=== PATIENT | female | born 2000 | race Caucasian/White ===

== ENCOUNTER 2024-07-13 08:31 | Emergency (ER) | payer OTHER, SELFPAY ==
[2024-07-13] VITALS (7 sets, daily range): BP systolic 112–120; BP diastolic 72–93; PULSE 60–75; RESP 16–18; TEMP 36.7; O2SAT 100
--- NOTE | ~2024-07-13 | XR_ITS ---
EXAMINATION: XR chest 2V DATE: 07/13/2024 09:09 INDICATION: Chest pain. TECHNIQUE: Frontal and lateral views of the chest were obtained. COMPARISON: None. FINDINGS: There is no pneumonia, pleural effusion, or pneumothorax. The heart is normal. IMPRESSION: 1. No acute cardiopulmonary disease. Reviewed, dictated and finalized at location A.
--- NOTE | ~2024-07-13 | CT_ITS ---
EXAMINATION: CTA chest PE abdomen pel DATE: 07/13/2024 10:08 INDICATION: Chest and upper abdominal pain. TECHNIQUE: Computed tomography angiography (CTA) of the chest was performed with 100 mL Omnipaque-350 intravenous contrast timed to evaluate the pulmonary arteries. Coronal maximum intensity projection 3D-reconstructions were created by the technologist. Computed tomography (CT) of the abdomen and pelv is was performed with intravenous contrast. Automated exposure control and iterative reconstruction t echnique were employed. The dose-length product was 634.20 mGy-cm. COMPARISON: None. FINDINGS: CTA chest: The lungs demonstrate minimal atelectasis. No pleural effusion. The heart size is normal. No pericardial effusion. There is no pulmonary embolus. There is mild thoracic spondylosis. CT abdomen and pelvis: The liver, gallbladder, spleen, pancreas, adrenal glands, and kidneys are norm al. There is a moderate volume of ascites. There are no dilated loops of bowel. The appendix is crow l. The ovaries are enlarged with numerous follicles on either side. There are no pathologically enlar ged lymph nodes. There is a 2.2 cm cyst in the vulva on the left, likely a Bartholin cyst. The bones are unremarkable. IMPRESSION: 1. No pulmonary embolus. 2. Enlarged ovaries with numerous follicles, likely ovarian hyperstimulation syndrome. 3. Moderate volume of ascites. 4. 2.2 cm cyst in the vulva on the left, likely a Bartholin cyst. Reviewed, dictated and finalized at location A. IMPRESSION: 1. No pulmonary embolus. 2. Enlarged ovaries with numerous follicles, likely ovarian hyperstimulation sy ndrome. 3. Moderate volume of ascites. 4. 2.2 cm cyst in the vulva on the left, likely a Bartholin cyst.
--- NOTE | 2024-07-13 08:33 | ECG_ITS ---
Test Date: 2024-07-13 08:41:52 Measurements Intervals [place] Rate: 66 P: 73 OK: 154 QRS: 12 QRSD: 83 T: 24 QT: 373 QTc: 393 Interpretive Statements SINUS RHYTHM WITH SINUS ARRHYTHMIA No previous ECG available for comparison Electronically Signed On 07-13-2024 15:11:43 CDT by Shaquille Watters M.D.
[2024-07-13 09:01] LABS: Basophils Percent Auto 0.3 % (0.2-1.2); Eosinophils Absolute Auto 0.1 K/mm3 (0-0.3); Eosinophils Percent Auto 0.6 % (0-4.4); Immature Granulocyte Absolute 0.06 K/mm3 (0.00-0.031); Immature Granulocyte Percent A 0.5 % (0-0.5); Lymphocytes Percent Auto 15.4 % (18.3-44.2); Mean Corpuscular HGB Conc 34.2 g/dl (32-36); Mean Corpuscular Volume 87.8 fl (80-100); Mean Platelet Volume 9.9 fl (7.4-10.4); Monocytes Percent Auto 7.8 % (2.6-8.5); Neutrophils Absolute Auto 9.3 K/mm3 (1.3-6.7); Neutrophils Percent Auto 75.4 % (45.5-73.1); Platelet Count Result 201 k/mm3 (150-375); Red Blood Count 4.33 M/mm3 (4.2-5.4); White Blood Count 12.4 K/mm3 (4.5-10.0)
--- NOTE | 2024-07-13 09:09 | ED.GENADULT ---
HPI - General Adult General Chief complaint: Chest Pain Stated complaint: cp, sob post egg retrieval yesterday Time Seen by Provider: 07/13/24 08:43 History of Present Illness HPI narrative: Patient is a 23-year-old female who presents ER with lower abdominal pain as well as chest pain and shortness of breath. Patient underwent a egg retrieval at [facility]/fertility clinic yesterday. She reports that the retrieval process was uneventful. She has been on Lovenox for 2 days due to hormone therapy she has been receiving an effort to hopefully prevent any blood clots. She has not been diagnosed with a DVT. Patient reports she is having pain in her right lower quadrant without radiation. The pain is worse with physical movement. Patient also at 3:00 a.m. developed left-sided chest and back pain as well as some shortness of breath. She reports occasionally she will have some tingling of left arm. No fevers or chills or sweats. No vaginal bleeding. Related Data Allergies Allergy/AdvReac Type Severity Reaction Status Date / Time No Known Allergies Allergy Verified 07/13/24 09:16 Review of Systems Review of Systems: All systems reviewed & are unremarkable except as noted in HPI and below Constitutional: Constitutional: Reports no additional constitutional complaints ENT: Reports system reviewed and no additional complaints, except as documented Cardiovascular: Cardiovascular: Reports chest pain, Denies rapid heart rate and Reports radiating jaw, neck or arm pain Respiratory: Respiratory: Denies chest congestion, Denies cough, Reports dyspnea and Denies wheezing Gastrointestinal: Gastrointestinal: Reports abdominal pain, Denies diarrhea, Denies nausea and Denies vomiting Genitourinary: Genitourinary: Reports no additional female genitourinary complaints Musculoskeletal: Musculoskeletal: Reports no additional musculoskeletal complaints PMFSH Past Medical History Medical History (Updated 07/13/24 @ 12:45 by Reinaldo Mendoza MD) Healthy female adult Surgical History Surgical History (Updated 07/13/24 @ 09:18 by Reinaldo Mendoza MD) No history of previous surgery Exam Narrative: GENERAL: Well-appearing, well-nourished, and in no acute distress. HEAD: Normocephalic, atraumatic. EYES: PERRL and EOMI. ENT: Mucous membranes moist. NECK: Supple. Mild discomfort left trapezius musculature CHEST: Clear to auscultation. No respiratory distress. HEART: Regular rate and rhythm. Normal peripheral pulses. ABDOMEN: Soft, moderate tenderness with guarding in the right lower quadrant of the abdomen, nondistended. Yellow bruising and 1 quarter-sized area of purple bruising from Lovenox injections. EXTREMITIES: Normal range of motion. No edema. SKIN: Warm, dry, no rash. NEURO: Alert and oriented x3. PSYCH: Normal mood and affect. Course Vital Signs Vital signs: Vital Signs Temperature 98.1 F 07/13/24 08:35 Pulse Rate 75 07/13/24 08:35 Respiratory Rate 16 07/13/24 08:35 Blood Pressure 120/77 07/13/24 08:35 Pulse Oximetry 100 07/13/24 08:35 Oxygen Delivery Room Air 07/13/24 08:35 Temperature 98.1 F 07/13/24 08:35 Pulse Rate 63 07/13/24 12:03 Respiratory Rate 18 07/13/24 09:34 Blood Pressure 118/74 07/13/24 12:03 Pulse Oximetry 100 07/13/24 12:03 Oxygen Delivery Room Air 07/13/24 09:18 Medical Decision Making MDM Narrative Medical decision making narrative: -Course: Patient resting comfortably. Pain improved. No known distress. Appropriate for discharge. -Co-morbidities complicating care: hormone use. -Social determinants of health: None -External Chart Review: None -Hx from independent Sources: Patient -Independent interpretation of studies: Troponin negative x2. CBC with mild elevation in WBC. Normal hemoglobin. CTA without PE. No intra-abdominal hemorrhage. -Interventions: Toradol, Valium -Shared decision making / Disposition: Y
[2024-07-13 09:11] LABS: Prothrombin Time 13.2 Seconds (11.1-14.7)
[2024-07-13 09:12] LABS: Partial Thromboplastin Time 25.5 Seconds (22.3-36.8)
[2024-07-13 09:13] LABS: Alanine Aminotransferase 14 U/L (6-35); Alkaline Phosphatase 54 U/L (38-126); Anion Gap 11 mmol/L (4-12); Aspartate Amino Transferase 21 U/L (14-36); Bilirubin,Total 0.2 mg/dL (0.2-1.3); Blood Urea Nitrogen 6 mg/dL (7-17); Calcium 8.6 mg/dL (8.4-10.2); Carbon Dioxide 22 mmol/L (22-30); Chloride 103 mmol/L (98-107); Estimated CRCL calculation 124 ml/min; Estimated Glomerular Filt Rate > 60; Glucose 100 mg/dL (65-110); Lipase 61 U/L (23-300); Potassium 3.9 mmol/L (3.4-5.0); Sodium 136 mmol/L (137-145)
[2024-07-13 09:24] LABS: Troponin I < 0.012 ng/mL (0.000-0.034)
[2024-07-13] MEDS: diazePAM INJ (*CRX) 10 MG/2 ML SYRINGE 5 MG IV PUSH (10:58)
[2024-07-13] MEDS: KETOROLAC 30 MG/ML VIAL (*BKC) 15 MG IV PUSH (10:58)
--- NOTE | 2024-07-13 11:55 | ECG_ITS ---
Test Date: 2024-07-13 11:56:44 Measurements Intervals [place] Rate: 66 P: 64 NE: 163 QRS: 11 QRSD: 86 T: 29 QT: 393 QTc: 414 Interpretive Statements SINUS RHYTHM WITH MARKED SINUS ARRHYTHMIA Compared to ECG 07/13/2024 08:41:52 No significant changes Electronically Signed On 07-13-2024 15:17:10 CDT by Shaquille Watters M.D.
[2024-07-13 12:29] LABS: Troponin I < 0.012 ng/mL (0.000-0.034)
== END 2024-07-13 12:49 | disposition home or self-care (01) ==
PROVIDERS: Emergency Provider Emergency Medicine
DX: R07.89 Other chest pain (principal); N75.0 Cyst of Bartholin's gland; Z79.01 Long term (current) use of anticoagulants; Z79.890 Hormone replacement therapy; N83.8 Other noninflammatory disorders of ovary, fallopian tube and broad ligament; R18.8 Other ascites
CPT/HCPCS: 36415; 71046; 71275; 74177; 80053; 83690; 84484; 85025; 85610; 85730; 93005; 96374; 96375; 99284; J1885; J3360; Q9967

== ENCOUNTER 2025-09-21 19:10 | Emergency (ER) | payer OTHER, SELFPAY ==
[2025-09-21 19:16] VITALS: BP 125/63; PULSE 70; RESP 18; TEMP 36.6; O2SAT 100
--- NOTE | 2025-09-21 19:17 | ED_ITS ---
HPI - General Adult General Chief complaint: Skin/Abscess/Foreign Body Stated complaint: Allergic Reaction Time Seen by Provider: 09/21/25 19:17 Source: patient, RN notes reviewed and old records reviewed Mode of arrival: ambulatory Limitations: no limitations History of Present Illness HPI narrative: 25-year-old female presents to the [facility] with red bumps to the right hip area, right arm, right leg. Denies any the thing new except for puppies that are being raised in her garage. Reports that she is taking Benadryl which has not helped with the itching. Reports itching worse at night. Symptoms started 2 days ago Related Data Home Medications ?Medication ?Instructions ?Recorded ?Confirmed ?Last Taken ?Type norethindrone 1 mg-ethinyl tablet 09/21/25 Unknown Hi story estradiol 20 mcg (21)-iron 75 mg (7) tablet (Aurovela Fe 1-20 (28)) Allergies Allergy/AdvReac Type Severity Reaction Status Date / Time No Known Allergies Allergy Verified 09/21/25 19:24 Review of Systems Review of Systems: All systems reviewed & are unremarkable except as noted in HPI and below Constitutional: Constitutional: Reports no additional constitutional complaints Respiratory: Respiratory: Denies cough and Denies dyspnea Musculoskeletal: Musculoskeletal: Reports no additional musculoskeletal complaints Integumentary/Breasts: Skin/Breast: Reports as per HPI [facility] Past Medical History Medical History Healthy female adult Surgical History Surgical History No history of previous surgery Comments At the time of my signature, I reviewed and agree with the nursing past medical, surgical, social, and family history. There is no relevant family history pertinent to the patient complaint. Exam Const: General: cooperative, healthy appearing, comfortable, no acute distress, well developed, alert and well nourished Nutritional Appearance: well nourished Orientation/consciousness: patient oriented x3 Limitations: no limitations HENMT: Head: normal to inspection Mouth: Yes Normal oral and palatal mucosa present, Yes lip normal, Yes tongue normal and Yes moist mucous membranes Eyes: General: appearance normal, both eyes and all related structures Alignment and Position: alignment normal Neck: Neck: normal visual inspection, full ROM, no lymphadenopathy and no meningeal signs Chest: Chest palpation & inspection: normal inspection of the chest Resp: Effort & Inspection: normal respiratory effort and able to speak in complete sentences Cardio: Rate: regular rate Skin: General skin exam: normal color and no rashes or lesions noted Other: Red raised bumps, patient describes itchy without fluctuance or cellulitic changes to the right axilla, right hip area and right lower leg. Neuro: General: patient oriented x3, gait normal, moves all extremities and no meningeal signs Cognition (Neuro): normal cognition Speech: normal speech Gait exam (Neuro): Normal gait present Extrem: General: normal to inspection, full ROM, capillary refill normal and normal gait Psych: Appearance: grossly normal and well kempt Mental Status: mental status grossly normal Speech and movement: Normal speech and movement present and Clear speech present Affect: normal affect Attitude: cooperative Course Course Level of Care: Express Care Visit Vital Signs Vital signs: Vital Signs Temperature 97.8 F 09/21/25 19:16 Pulse Rate 70 09/21/25 19:16 Respiratory Rate 18 09/21/25 19:16 Blood Pressure 125/63 09/21/25 19:16 Pulse Oximetry 100 09/21/25 19:16 Oxygen Delivery Room Air 09/21/25 19:16 Temperature 97.8 F 09/21/25 19:16 Pulse Rate 70 09/21/25 19:16 Respiratory Rate 18 09/21/25 19:16 Blood Pressure 125/63 09/21/25 19:16 Pulse Oximetry 100 09/21/25 19:16 Oxygen Delivery Room Air 09/21/25 19:16 Reviewed Medical Decision Making MDM Narrative Medical decision making narrative: Patient sitting in exam room. Patient is nontoxic, vitals stable. Patient presents with a red raised bumps. Most consistent with insect bites. No cellulitic changes Will prescribe topical steroid cream, discussed [id number] treatments as well Patient appropriate for outpatient treatment with close follow-up Discharge instructions reviewed with patient, as well as provided in writing per nursing staff. The instructions also include specific and strict return/GO TO THE ER as well as f/u information. All questions have been answered, and the patient deny any further questions with discharge and discharge plan. Some parts of this dictation were generated by voice recognition software and may contain typographical and/or grammatical inaccuracies. Differential Diagnosis Differential Diagnosis: Rash, insect bites, fleas, scabies Medical Records Medical records reviewed: Yes I reviewed the external patient's medical records. Vital Signs Vital Signs: Vital Signs Temperature 97.8 F 09/21/25 19:16 Pulse Rate 70 09/21/25 19:16 Respiratory Rate 18 09/21/25 19:16 Blood Pressure 125/63 09/21/25 19:16 Pulse Oximetry 100 09/21/25 19:16 Oxygen Delivery Room Air 09/21/25 19:16 Temperature 97.8 F 09/21/25 19:16 Pulse Rate 70 09/21/25 19:16 Respiratory Rate 18 09/21/25 19:16 Blood Pressure 125/63 09/21/25 19:16 Pulse Oximetry 100 09/21/25 19:16 Oxygen Delivery Room Air 09/21/25 19:16 Reviewed Lab Data Lab results reviewed: Yes I reviewed the patient's lab results. Labs: Reviewed Critical Care Time Critical Care Time Critical Care Time: No Discharge Plan Discharge Clinical Impression: Insect bites Patient Disposition: Home Condition: Stable Instructions: Antibiotic Form, Insect Bite or Sting (ED) Additional Instructions: The most important part of your care is follow up with Primary care provider. Take Benadryl 25 mg every 8 hours for itching Take Zyrtec every day Take Pepcid 20mg daily for 7 days Use the topical steroid cream to the bug bites. Do not scratch. If they itch apply a cool compress. Avoid hot showers, Take cool showers. Hot showers will make rashes worse Apply cool compresses every 2-3 hours for 15 minutes Go to the ER for new or worsening symptoms such as shortness of breath. Patient Language: [place] Prescriptions: New triamcinolone acetonide 0.1 % cream 1 applic topical TID 7 Days Qty: 30 0RF No Action norethindrone-e.estradiol-iron [Aurovela Fe 1-20 (28)] 1 mg-20 mcg (21)/75 mg (7) tablet Follow-up/Referrals: PHYSICIAN,HEALTHCARE SOCIAL WORKER [Primary Care Provider, Internal Medicine] Time of Disposition: 19:25
== END 2025-09-21 19:30 | disposition home or self-care (01) ==
PROVIDERS: Emergency Provider Nurse Practitioner
DX: S40.861A Insect bite (nonvenomous) of right upper arm, initial encounter (principal); S70.261A Insect bite (nonvenomous), right hip, initial encounter; S80.861A Insect bite (nonvenomous), right lower leg, initial encounter; W57.XXXA Bitten or stung by nonvenomous insect and other nonvenomous arthropods, initial encounter
CPT/HCPCS: 99213; G0463